=== PATIENT | female | born 1950 | race Caucasian/White ===

== ENCOUNTER → 2019-06-29 | Outpatient (CLI) | payer MEDICARE ==
--- NOTE | 2019-06-29 09:17 | CT ---
EXAMINATION TYPE: CT chest w con DATE OF EXAM: 06/29/2019 COMPARISON: 06/04/2019 HISTORY: Enlarged lymph nodes CT DLP: 656.9 mGycm, Automated exposure control for dose reduction was used. CONTRAST: Performed injected with 80 mL of Isovue 300. TECHNIQUE: Axial images were obtained at 5 mm thick sections. Reconstructed images are reviewed on Walk Score computer in the coronal plane. FINDINGS: Portion of the thyroid visualized is normal. There is a peripheral 1.1 cm density along the major fissure on the right. Series 4 image 36. Some no dule or mass is at the left diaphragm measuring 1.2 x 2.3 cm. Series 4 image 44. Small amount of pneu monitis changes adjacent to these 2 lesions. The left basilar lesion appears better defined on the cu rrent examination and is similar to slightly smaller than the comparison. The nodule on the right lik ewise is smaller than the comparison. Nodule at the left lung base had increased radiotracer accumulation on recent PET/CT dated 05/26/2019. Decrease in size could be related to a resolving adjacent pneumonia or atelectasis right primary or m etastatic disease at this level is not excluded on the basis of this examination. No enlarged mediastinal or hilar adenopathy is evident. Scattered shotty lymphadenopathy in the med iastinum. The ascending aorta diameter at the level of the main pulmonary artery is 3.2 cm. The main pulmonary artery diameter at the bifurcation is 2.[address] sections are obtained through the upper abdomen. Abdomen is essentially unremarkable. IMPRESSIONS: 1. There is again identified a lung mass above the left diaphragm and a 1.1 cm nodule in the peripher y of the right lung. Clinical management is recommended. Left lung nodule was suspicious based on a r ecent PET/CT.
== END | disposition home or self-care (01) ==
LOC: RADCTMAIN 06:35
PROVIDERS: ATTEND Thoracic Surgery (Cardiothoracic Vascular Surgery)
DX: R91.8 Other nonspecific abnormal finding of lung field (principal)
CPT/HCPCS: 82565; 84520; 71260; Q9967

== ENCOUNTER → 2019-07-30 | Outpatient (CLI) | payer MEDICARE ==
[2019-07-30 13:19] LABS: HCT 44.4 % (34.0-46.0); HGB 14.2 gm/dL (11.4-16.0); MCH 27.8 pg (25.0-35.0); Mean Platelet Volume 8.5; Platelet Count 192 k/uL (150-450); RDW 13.1 % (11.5-15.5); WBC 5.2 k/uL (3.8-10.6)
[2019-07-30 13:22] LABS: Appearance,Urine Clear (Clear); Bilirubin,Urine Negative (Negative); Blood,Urine Small (Negative); Color,Urine Yellow; Glucose,Urine (UA) Negative (Negative); Hyaline Casts,Urine 1 /lpf (0-2); Ketones,Urine Negative (Negative); Leukocyte Esterase,Urine Negative (Negative); Mucus,Urine Occasional /hpf; Nitrite,Urine Negative (Negative); PH, Urine 5.5 (5.0-8.0); Protein,Urine Negative (Negative); RBC,Urine 3 /hpf (0-5); Specific Gravity,Urine 1.026 (1.001-1.035); Squamous Epithelial Cell,Urine <1 /hpf (0-4); Urobilinogen,Urine <2.0 mg/dL (<2.0); WBC,Urine 1 /hpf (0-5)
[2019-07-30 13:26] LABS: African American GFR (CKD) >90 (>60 ml/min/1.73 sqM); Anion Gap 7 mmol/L; Blood Urea Nitrogen 27 mg/dL (7-17); Carbon Dioxide 25 mmol/L (22-30); Chloride 108 mmol/L (98-107); Non-African American GFR(CKD) 89 (>60 ml/min/1.73 sqM); Potassium 4.1 mmol/L (3.5-5.1); Sodium 140 mmol/L (137-145)
[2019-07-30 13:27] LABS: INR 0.9 (<1.2)
[2019-07-30 13:32] LABS: Partial Thromboplastin Time 20.3 sec (22.0-30.0)
== END | disposition home or self-care (01) ==
LOC: LABPAT 12:52
PROVIDERS: ATTEND Thoracic Surgery (Cardiothoracic Vascular Surgery)
DX: Z01.812 Encounter for preprocedural laboratory examination (principal); R91.8 Other nonspecific abnormal finding of lung field; Z51.81 Encounter for therapeutic drug level monitoring
CPT/HCPCS: 80051; 81001; 82565; 84520; 85027; 85610; 85730; 87086

== ENCOUNTER 2019-08-06 09:27 | Inpatient (IN) | payer MEDICARE ==
[2019-07-31 15:40] VITALS: BMI 43.9
[~2019-08-06 09:27] MED LIST: DEXAMETHASONE SOD PHOSPHATE 10 MG/ML 1 ML VIAL IV ONE; ONDANSETRON 4 MG/2 ML VIAL IVP ONE
[2019-08-06] MEDS: LACTATED RINGERS 1,000 ML IV SCH ×2 (10:38→11:29)
[2019-08-06] MEDS ORDERED: LIDOCAINE 1% 20 ML VIAL (10MG/ML) FOR IV START INTRADERMA ONE (10:39)
[2019-08-06] MEDS ORDERED: fentaNYL (PF) 50 MCG/ML 2 ML AMP IVP ONE ×2 (10:58→11:01)
[2019-08-06] MEDS: MIDAZOLAM 2 MG/2 ML VIAL IV PRN ×2 (10:58→11:00)
[2019-08-06] MEDS ORDERED: HYDROmorphone (PF) 1 MG/ML ONE (11:20)
[2019-08-06] MEDS ORDERED: ONDANSETRON 4 MG/2 ML VIAL ONE (11:20)
[2019-08-06] MEDS ORDERED: GLYCOPYRROLATE 0.2 MG/ML 2 ML VIAL ONE (11:20)
[2019-08-06] MEDS ORDERED: PROPOFOL 10 MG/ML 20 ML VIAL IV ONE (11:20)
[2019-08-06] MEDS ORDERED: SUCCINYLCHOLINE CHLORIDE 100 MG/5 ML SYR IV ONE (11:20)
[2019-08-06] MEDS ORDERED: LIDOCAINE 1% INJ 10MG/ML (20 ML MDV) ONE (11:20)
[2019-08-06] MEDS ORDERED: ROCURONIUM BROMIDE 10 MG/ML 10 ML VIAL IV ONE (11:20)
[2019-08-06] MEDS ORDERED: fentaNYL (PF) 50 MCG/ML 2 ML AMP ONE (11:20)
[2019-08-06] MEDS ORDERED: NEOSTIGMINE 1 MG/ML 10 ML VIAL ONE (11:20)
[2019-08-06] MEDS ORDERED: BUPIVACAINE (PF) 0.5% 30 ML VIAL SQ ONE ×2 (12:32)
[2019-08-06] MEDS ORDERED: LACTATED RINGERS 1,000 ML IV ONE (12:37)
[2019-08-06] MEDS: HYDROmorphone 0.5 MG/0.5 ML SYRINGE IVP PRN ×3 (13:14→14:52)
--- NOTE | 2019-08-06 13:30 | XR ---
EXAMINATION TYPE: XR chest 1V portable DATE OF EXAM: 08/06/2019 Comparison: CT chest 06/29/2019 Clinical History: 68-year-old female status post VATS Findings: Heart upper limits of normal in size, likely accentuated due to portable AP technique. Suspect magnif ication causing prominence to the interstitium. Left-sided chest tube in place. No appreciable pneumo thorax. Left basilar opacity and trace right effusion suggested. Some chronic scarring peripheral rig ht midlung. Impression: 1. Left-sided chest tube. No appreciable pneumothorax. 2. Left basilar opacity could represent postoperative atelectasis or small effusion. A trace effusion may be present on the right.
--- NOTE | 2019-08-06 15:03 | P.OP ---
Date of Procedure: 08/06/19 Preoperative Diagnosis: left lower lobe mass Postoperative Diagnosis: same Procedure(s) Performed: Left thoracoscopic lower lobe wedge resection Anesthesia: NADIA Surgeon: Jamshid Pleitez Sap Solution Manager Consultant #1: Carmine Carter Estimated Blood Loss (ml): 10 IV fluids (ml): 500 Pathology: other (Wedge resection left lower lobe for permanent section) Condition: stable Disposition: PACU Indications for Procedure: 68-year-old female with mass and left lower lobe over a several month time. This had diminished in size and the patient was reassured that we could continue to watch it however she called and said that she was very nervous and wanted it resected. Operative Findings: No obvious mass could be identified in the left lower lobe. A wide wedge resection of the area in question was performed. Description of Procedure: Patient was brought to the operating room, placed supine the operating table, anesthetized and intubated. Patient was turned in the right lateral decubitus position. Tube was positioned with fiberoptic bronchoscopy and secured. Left chest was sterilely prepped and draped. 3 one-inch incisions were made in the lower portion of the left chest and video thoracoscope was introduced through one. Through the other instrumentation was placed in the chest was carefully explored. Mass could not be identified on the external surface of the lower lobe of the lung. Ultimately it was decided to perform a wide wedge resection of the area in question using multiple firings of Endo BRAULIO medium thick stapler. Specimen was removed from the chest using an Endo Catch bag and sent for permanent section. 28-Slovak chest tube was placed through separate stab incision and positioned posterior apically and secured with 0 Ethibond suture. Lung was reinflated. Incisions were closed with layers of Vicryl suture. Chest tube was secured with an 0 Ethibond suture. Dry sterile dressings were applied the patient was extubated and transferred to recovery in stable condition
[2019-08-06] MEDS ORDERED: IPRATROPIUM-ALBUTEROL 3 ML NEB IH PRN (15:33)
[2019-08-06] MEDS ORDERED: ONDANSETRON 4 MG/2 ML VIAL IVP PRN (15:33)
[2019-08-06] MEDS ORDERED: DEXTROSE 5%-0.45% NACL 1,000 ML IV SCH (15:33)
[2019-08-06] MEDS ORDERED: traMADol 50 MG TAB PO PRN (15:33)
[2019-08-06] MEDS ORDERED: ACETAMINOPHEN TAB 500 MG TAB PO PRN (15:33)
[2019-08-06] MEDS: HEPARIN SODIUM,PORCINE 5,000 UNIT/ML 1 ML VIAL SQ SCH (16:11)
--- NOTE | 2019-08-06 16:25 | P.CNPUL ---
History of Present Illness Consult date: 08/06/19 Reason for consult: dyspnea, cough, COPD, lung mass, obstructive sleep apnea Chief complaint: Left lower lobe mass History of present illness: This is a 68-year-old female who has a left-sided lung mass and cyst on revie wing the mass patient underwent wide vaginal resection of mass tolerated very well successfully weaned and extubated in recovery area, patient was examined her cough. Denies any chest pain is still under affect of anesthetic medication most related as been not been obtained Review of Systems All systems: negative Past Medical History Past Medical History: Asthma, Hypertension, Pneumonia Additional Past Medical History / Comment(s): states has pulmonary nodule History of Any Multi-Drug Resistant Organisms: None Reported Past Surgical History: Hysterectomy, Joint Replacement, Orthopedic Surgery Additional Past Surgical History / Comment(s): julien knee replacement, bunionectomy, bronchoscopy with bx, D&C Past Anesthesia/Blood Transfusion Reactions: No Reported Reaction Smoking Status: Never smoker - Past Family History Sister(s) Family Medical History: Cancer Additional Family Medical History / Comment(s): breast Medications and Allergies Home Medications Medication Instructions Recorded Confirmed Type Albuterol Inhaler [Ventolin Hfa 1 - 2 puff INHALATION RT-Q6H PRN 07/31/19 08/06/19 History Inhaler] Aspirin [Adult Low Dose Aspirin EC] 81 mg PO DAILY 07/31/19 08/06/19 History Flaxseed Oil 1 tab PO DAILY 07/31/19 08/06/19 History Ibuprofen [Motrin] 800 mg PO Q8H PRN 07/31/19 08/06/19 History Metoprolol Tartrate [Lopressor] 25 mg PO QAM 07/31/19 08/06/19 History Multivitamins, Thera [Multivitamin 1 tab PO DAILY 07/31/19 08/06/19 History (formulary)] [place]-3 Fatty Acids/Fish Oil [Fish 1 each PO DAILY 07/31/19 08/06/19 History Oil 1,000 mg Softgel] Allergies Allergy/AdvReac Type Severity Reaction Status Date / Time No Known Allergies Allergy Verified 08/06/19 09:59 Physical Exam Vitals: Vital Signs Temp Pulse Pulse Resp BP BP BP 08/06/19 15:50 97.5 F L 55 L 16 129/66 08/06/19 14:55 57 L 16 159/77 08/06/19 14:40 58 L 16 161/78 08/06/19 14:25 49 L 16 163/81 08/06/19 14:10 47 L 16 166/81 08/06/19 13:53 45 L 16 155/73 08/06/19 13:38 53 L 16 171/81 08/06/19 13:24 50 L 16 183/86 08/06/19 13:08 59 L 18 171/77 08/06/19 12:53 98.1 F 76 20 190/87 08/06/19 10:14 98.3 F 66 20 120/81 135/91 Pulse Ox 08/06/19 15:50 93 L 08/06/19 14:55 93 L 08/06/19 14:40 94 L 08/06/19 14:25 95 08/06/19 14:10 94 L 08/06/19 13:53 95 08/06/19 13:38 96 08/06/19 13:24 99 08/06/19 13:08 96 08/06/19 12:53 92 L 08/06/19 10:14 95 Intake and Output 08/06/19 08/06/19 08/06/19 06:59 14:59 22:59 Intake Total 1800 Output Total 10 Balance 1790 Intake: IV 1800 Output: Estimated Blood Loss 10 Other: Weight 118 kg 118 kg - Constitutional General appearance: average body habitus, disheveled, morbidly obese - EENT Eyes: EOMI, PERRLA Ears: bilateral: normal - Neck Neck: normal ROM Carotids: bilateral: upstroke normal Thyroid: bilateral: normal size - Respiratory Respiratory: bilateral: CTA - Cardiovascular Rhythm: regular Heart sounds: normal: S1, S2 - Neurologic Neurologic: CNII-XII intact - Musculoskeletal Musculoskeletal: gait normal, generalized weakness, strength equal bilaterally - Psychiatric Psychiatric: A&O x's 3, appropriate affect, intact judgment & insight Results - Diagnostic Findings Chest x-ray: report reviewed, image reviewed (Left-sided chest tube and no pneumothorax is seen left basilar opacity versus small effusion) Assessment and Plan Assessment: Left-sided lung mass status post resection Small residual left-sided pleural effusion Basal atelectasis Hypertension hypertensive cardiovascular disease Bronchial asthma mild intermittent Morbid obesity Degenerative joint disease osteoarthritis Plan: Continue deep breathing exercises incentive spirometry Resume home medications DVT and peptic ulcer disease prophylaxis Supplemental oxygen as needed Further recommendations pending plan of care as per clinical response of patient Follow-up on path report of left-sided lung mass Time with Patient: Greater than 30
[2019-08-06 16:43] VITALS: RESP 18
[2019-08-06] MEDS: KETOROLAC 30 MG/ML 1 ML VIAL IVP SCH (17:12)
[2019-08-06] MEDS: IPRATROPIUM-ALBUTEROL 3 ML NEB IH SCH ×2 (17:53→18:47)
[2019-08-07] MEDS: HEPARIN SODIUM,PORCINE 5,000 UNIT/ML 1 ML VIAL SQ SCH ×2 (01:52→08:46)
[2019-08-07] MEDS: KETOROLAC 30 MG/ML 1 ML VIAL IVP SCH ×3 (01:52→12:44)
[2019-08-07 06:27] LABS: Basophils % (A) 0 %; Eosinophils # (A) 0.1 k/uL (0-0.7); Eosinophils % (A) 1 %; HCT 39.2 % (34.0-46.0); Lymphocytes # (A) 0.9 k/uL (1.0-4.8); Lymphocytes % (A) 14 %; MCH 28.8 pg (25.0-35.0); MCHC 33.2 g/dL (31.0-37.0); MCV 86.7 fL (80.0-100.0); Mean Platelet Volume 8.5; Monocytes # (A) 0.5 k/uL (0-1.0); Monocytes % (A) 8 %; Neutrophils # (A) 5.2 k/uL (1.3-7.7); Neutrophils % (A) 76 %; Platelet Count 208 k/uL (150-450); RBC 4.52 m/uL (3.80-5.40); RDW 12.6 % (11.5-15.5); WBC 6.9 k/uL (3.8-10.6)
[2019-08-07 06:41] LABS: African American GFR (CKD) >90 (>60 ml/min/1.73 sqM); Anion Gap 5 mmol/L; Blood Urea Nitrogen 26 mg/dL (7-17); Calcium 8.9 mg/dL (8.4-10.2); Carbon Dioxide 27 mmol/L (22-30); Chloride 105 mmol/L (98-107); Glucose 106 mg/dL (74-99); Non-African American GFR(CKD) 81 (>60 ml/min/1.73 sqM); Potassium 4.7 mmol/L (3.5-5.1); Sodium 137 mmol/L (137-145)
[2019-08-07] MEDS ORDERED: PANTOPRAZOLE 40 MG TABLET PO SCH (07:30)
[2019-08-07] MEDS: IPRATROPIUM-ALBUTEROL 3 ML NEB IH SCH ×3 (07:43→16:42)
[2019-08-07] MEDS ORDERED: MULTIVITAMINS, THERA 1 EACH TAB PO SCH (09:00)
[2019-08-07] MEDS ORDERED: METOPROLOL TARTRATE 25 MG TAB PO SCH (09:00)
[2019-08-07] MEDS ORDERED: ASPIRIN 81 MG PO SCH (09:00)
--- NOTE | 2019-08-07 09:05 | XR ---
EXAMINATION TYPE: XR chest 1V DATE OF EXAM: 08/07/2019 COMPARISON: 08/06/2019 HISTORY: Post VATS TECHNIQUE: Single frontal view of the chest is obtained. FINDINGS: Heart upper limits of normal in size, likely accentuated due to portable AP technique. Mirella pect magnification causing prominence to the interstitium. Left- sided chest tube in place. No apprec iable pneumothorax. Bilateral basilar consolidation small effusion stable. Some chronic scarring uzma pheral right midlung. IMPRESSION: 1. No definite left-sided pneumothorax. 2. Bilateral basilar consolidation and effusion are stable
--- NOTE | 2019-08-07 12:05 | XR ---
EXAMINATION TYPE: XR chest 2V DATE OF EXAM: 08/07/2019 COMPARISON: 08/07/2019 TECHNIQUE: PA and lateral views submitted. HISTORY: Chest tube removal FINDINGS: Chest tube is been removed with tiny less than 5% left apical pneumothorax. Bilateral consolidation s mall effusion stable. No overt failure. Heart enlarged but stable. IMPRESSION: 1. Chest tube removal with a tiny less than 5% left apical pneumothorax. 2. Stable bilateral consolidation and small effusion.
[2019-08-07 12:26] VITALS: BP 140/63; PULSE 57; TEMP 97.9
--- NOTE | 2019-08-07 13:35 | P.DS ---
Providers Date of admission: 08/06/19 09:27 Expected date of discharge: 08/07/19 Attending physician: Jamshid Pleitez Consults: 08/06/19 15:33 Consult Physician Routine Consulting Provider: Devin Haq Consult Reason/Comments: post wedge resection Do you want consulting provider notified?: Yes Primary care physician: Link [facility] Course: FINAL DIAGNOSIS: 1. Left lower lobe mass 2. History of hypertension 3. Bronchial asthma, mild intermittent 4. Morbid obesity 5. Degenerative joint disease osteoarthritis PRINCIPAL PROCEDURE: 1. Left thoracoscopic lower lobe wedge resection HISTORY OF PRESENT ILLNESS: This is a 68-year-old female patient who is followed by Dr. Link Schmitt on an outpatient basis. She also follows with Dr. TRISHA Haq from pulmonary medicine. She has a past medical history significant for a left lower lobe mass, hypertension, bronchial asthma, morbid obesity and osteoarthritis. She has a history of progressive shortness of breath and dyspnea dating back from March 2019. She reports that she has had several courses of antibiotic and steroids without any relief. Subsequently a computed tomography scan of her chest was completed which demonstrated bilateral pulmonary nodules. Due to the findings of the bilateral pulmonary nodules she underwent a PET scan which showed uptake in the left lower lobe nodule with a SUV uptake of 5.73, a small uptake in the left hilum with an SUV of 4.35 and the right mid lung nodule had an SUV of 2.18. It also showed a small right-sided pleural effusion. For further evaluation the patient underwent a bronchoscopy with an attempt of transbronchial biopsy of the left lung nodule. The biopsy was nondiagnostic although cultures taken during the bronchoscopy grew positive for Escherichia coli which was treated with antibiotics and steroids. Due to the findings on the computed tomography scan of her chest, PET scan results and the biopsy results being nondiagnostic on the bronchoscopy she was referred to Dr. Jamshid Pleitez for further evaluation and treatment recommendations. Treatment options were discussed with the patient by Dr. Jamshid Pleitez with risks and benefits discussed and she wished to proceed with an elective left thoracoscopic procedure with lower lobe wedge resection. HOSPITAL COURSE: The patient was admitted to the hospital and after obtaining consent underwent an elective left thoracoscopic lower lobe wedge resection performed by Dr. Jamshid Pleitez. Upon completion of the surgery the patient was recovered and transferred to the cardiac stepdown unit for further monitoring and rehabilitation. Her chest tube was discontinued this morning without incident and a follow-up chest x-ray was completed which showed a less than 5% stable left apical pneumothorax with stable bilateral consolidation and small effusion. Her oxygen has been titrated down, her pain is well controlled and she is ready to be discharged home on postoperative day #1. She has received written and verbal instructions regarding her medications, activity restrictions, and signs and symptoms requiring physician notification and her follow-up appointments. Her surgical pathology results remain pending and will be discussed with her upon follow-up outpatient visit with Dr. Jamshid Pleitez. COMPLICATIONS: There were no postoperative complications. CONSULTATIONS: 1. Dr. Mcclain for pulmonary management. DISCHARGE INSTRUCTIONS: 1. No driving for 2 weeks or until physician gives their okay. 2. No lifting, pushing or pulling more than 10 pounds for 2 weeks. The physician will advise of any restriction changes. 3. Continue pain control per as needed orders. Alternate acetaminophen and ibuprofen for pain. 4. Continue with incentive spirometry and splinting until otherwise directed by the physician. 5. Leave chest tube dressing for 48 hours. After the 48 hours remove all dressings and shower daily. 6. Routine incision care. No powders, lotions, or ointments on incision. 7. Please call surgeon/JUNIOR ART DIRECTOR for temperature greater than 101F or drainage from the incision.. Plan - Discharge Summary Discharge Rx Participant: Yes New Discharge Prescriptions: New Pantoprazole [Protonix] 40 mg PO -BRKFST #30 tablet. Acetaminophen Tab [Tylenol] 1,000 mg PO Q6HR PRN tab PRN Reason: Fever And/ Or Pain Continue Multivitamins, Thera [Multivitamin (formulary)] 1 tab PO DAILY Albuterol Inhaler [Ventolin Hfa Inhaler] 1 - 2 puff INHALATION RT-Q6H PRN PRN Reason: Shortness Of Breath [place]-3 Fatty Acids/Fish Oil [Fish Oil 1,000 mg Softgel] 1 each PO DAILY Metoprolol Tartrate [Lopressor] 25 mg PO QAM Ibuprofen [Motrin] 800 mg PO Q8H PRN PRN Reason: Pain Flaxseed Oil 1 tab PO DAILY Aspirin [Adult Low Dose Aspirin EC] 81 mg PO DAILY Discharge Medication List Albuterol Inhaler [Ventolin Hfa Inhaler] 1 - 2 puff INHALATION RT-Q6H PRN 07/31/19 [History] Aspirin [Adult Low Dose Aspirin EC] 81 mg PO DAILY 07/31/19 [History] Flaxseed Oil 1 tab PO DAILY 07/31/19 [History] Ibuprofen [Motrin] 800 mg PO Q8H PRN 07/31/19 [History] Metoprolol Tartrate [Lopressor] 25 mg PO QAM 07/31/19 [History] Multivitamins, Thera [Multivitamin (formulary)] 1 tab PO DAILY 07/31/19 [History] [place]-3 Fatty Acids/Fish Oil [Fish Oil 1,000 mg Softgel] 1 each PO DAILY 07/31/19 [History] Acetaminophen Tab [Tylenol] 1,000 mg PO Q6HR PRN tab 08/07/19 [Rx] Pantoprazole [Protonix] 40 mg PO AC-BRKFST #30 tablet. 08/07/19 [Rx] Follow up Appointment(s)/Referral(s): Link Dsouza MD [Primary Care Provider] - 1 Week Jamshid Pleitez MD [STAFF PHYSICIAN] - 08/13/19 1:00 pm Devin Haq MD [STAFF PHYSICIAN] - 1 Week Activity/Diet/Wound Care/Special Instructions: DISCHARGE INSTRUCTIONS: 1. No driving for 2 weeks or until physician gives their okay. 2. No lifting, pushing or pulling more than 10 pounds for 2 weeks. The physician will advise of any restriction changes. 3. Continue pain control per as needed orders. Alternate acetaminophen and ibuprofen for pain. 4. Continue with incentive spirometry and splinting until otherwise directed by the physician. 5. Leave chest tube dressing for 48 hours. After the 48 hours remove all dressings and shower daily. 6. Routine incision care. No powders, lotions, or ointments on incision. 7. Please call surgeon/JUNIOR ART DIRECTOR for temperature greater than 101F or drainage from the incision. Discharge Disposition: HOME SELF-CARE
--- NOTE | 2019-08-12 16:40 | P.PN ---
Subjective Progress Note Date: 08/07/19 Principal diagnosis: Left-sided lung mass status post resection Small residual left-sided pleural effusion Basal atelectasis Hypertension hypertensive cardiovascular disease Bronchial asthma mild intermittent Morbid obesity Degenerative joint disease osteoarthritis 08/07/2019, patient seen and evaluated examined in follow-up sitting upright in the bed breathing comfortably denies any chest pain soreness in the chest some present, patient likely will be discharged later on today, patient is doing fairly well after left thorascopic lower lobe wedge resection of the lung mass This is a 68-year-old female who has a left-sided lung mass and cyst on reviewing the mass patient underwent wide vaginal resection of mass tolerated very well successfully weaned and extubated in recovery area, patient was examined her cough. Denies any chest pain is still under affect of anesthetic medication most related as been not been obtained Objective - Vital Signs Vital signs: Vital Signs Temp 97.9 F 08/07/19 11:40 Pulse 57 L 08/07/19 11:40 Resp 18 08/07/19 11:40 BP 140/63 08/07/19 11:40 Pulse Ox 93 L 08/07/19 11:40 Intake & Output 08/06/19 08/07/19 08/07/19 18:59 06:59 18:59 Intake Total 192 150 600 Output Total 10 25 10 Balance 1909 125 590 Weight 118 kg 118.8 kg Intake: IV 1800 Oral 120 150 600 Output: Chest Tube Drainage 25 Chest Tube Left Mid- 25 Axillary Chest Drainage 10 Left Chest 10 Estimated Blood Loss 10 Other: # Voids 1 1 - Exam - Constitutional General appearance: average body habitus, disheveled, morbidly obese - EENT Eyes: EOMI, PERRLA Ears: bilateral: normal - Neck Neck: normal ROM Carotids: bilateral: upstroke normal Thyroid: bilateral: normal size - Respiratory Respiratory: bilateral: CTA - Cardiovascular Rhythm: regular Heart sounds: normal: S1, S2 - Neurologic Neurologic: CNII-XII intact - Musculoskeletal Musculoskeletal: gait normal, generalized weakness, strength equal bilaterally - Psychiatric Psychiatric: A&O x's 3, appropriate affect, intact judgment & insight - Labs CBC & Chem 7: 08/07/19 05:54 08/07/19 05:54 Labs: Abnormal Lab Results - Last 24 Hours (Table) 08/07/19 08/07/19 Range/Units 05:54 05:54 Lymphocytes # 0.9 L (1.0-4.8) k/uL BUN 26 H (7-17) mg/dL Glucose 106 H (74-99) mg/dL Assessment and Plan Assessment: Left-sided lung mass status post resection Small residual left-sided pleural effusion Basal atelectasis Hypertension hypertensive cardiovascular disease Bronchial asthma mild intermittent Morbid obesity Degenerative joint disease osteoarthritis Plan: Continue deep breathing exercises incentive spirometry Continue home medications DVT and peptic ulcer disease prophylaxis Supplemental oxygen as needed Further recommendations pending plan of care as per clinical response of patient Follow-up on path report of left-sided lung mass Agree with discharge planning Time with Patient: Greater than 30
--- NOTE | 2019-08-19 09:12 | CDI ---
Documentation Clarification Form Date: 08/19/19 From: Chrissy Mckeon Phone: If you have a question about this query, please contact Meron Echavarria, Percussion Teacher at [phone] between 8am and 5pm. Admit Date: 08/06/19 Discharge Date: 08/07/19 Patient Name: Karmen Cruz Visit Number: [id number] ATTENTION: The Clinical Documentation Specialists (CDI) and [facility] Coding Staff appreciate your assistance in clarifying documentation. Please respond to the clarification below the line at the bottom and electronically sign. The CDI & [facility] Coding staff will review the response and follow-up if needed. Please note: Queries are made part of the Legal Health Record. If you have any questions, please contact the author of this message via ITS. Dear Dr. Jamshid Pleitez, The final diagnosis of the pathology report states: Acute and organizing granulomatous pneumonia. 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 Documentation states: Left sided lung mass. Patient history/risk factors: Morbid obesity w BMI 43.6, COPD, LUNA, mild intermittent asthma, OA Clinical Indicators: Patient is a morbidly obese female with a history (five months) of increasing shortness of breath and dyspnea on exertion. Over the past five months, she has had several courses of antibiotics and steroids without significant relief. Treatment: Left thoracoscopic lower lobe wedge resection, IV Cefazolin, IV Decadron, nebulizer, In your professional opinion, do you agree with the pathology report specifying left lower lobe mass as Acute and organizing granulomatous pneumonia? No Other (please specify) Unable to determine MTDD
--- NOTE | 2019-08-21 13:25 | CDI ---
Documentation Clarification Form Date: 08/19/19 From: Chrissy Mckeon Phone: If you have a question about this query, please contact Meron Echavarria, Java Consultant at [phone] between 8am and 5pm. Admit Date: 08/06/19 Discharge Date: 08/07/19 Patient Name: Karmen Cruz Visit Number: [id number] ATTENTION: The Clinical Documentation Specialists (CDI) and [facility] Coding Staff appreciate your assistance in clarifying documentation. Please respond to the clarification below the line at the bottom and electronically sign. The CDI & [facility] Coding staff will review the response and follow-up if needed. Please note: Queries are made part of the Legal Health Record. If you have any questions, please contact the author of this message via ITS. Dear Dr. Jamshid Pleitez, The final diagnosis of the pathology report states: Acute and organizing granulomatous pneumonia. 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 Documentation states: Left sided lung mass. Patient history/risk factors: Morbid obesity w BMI 43.6, COPD, LUNA, mild intermittent asthma, OA Clinical Indicators: Patient is a morbidly obese female with a history (five months) of increasing shortness of breath and dyspnea on exertion. Over the past five months, she has had several courses of antibiotics and steroids without significant relief. Treatment: Left thoracoscopic lower lobe wedge resection, IV Cefazolin, IV Decadron, nebulizer, In your professional opinion, do you agree with the pathology report specifying left lower lobe mass as Acute and organizing granulomatous pneumonia? Yes No Other (please specify) Unable to determine yes MTDD
== END 2019-08-07 16:35 | disposition home or self-care (01) | DRG 167 ==
LOC: 2ORMAIN 09:27 → 3SCARD 12:45
PROVIDERS: ADMIT Thoracic Surgery (Cardiothoracic Vascular Surgery); ATTEND Thoracic Surgery (Cardiothoracic Vascular Surgery)
PROC: 0BBJ4ZX Excision of Left Lower Lung Lobe, Percutaneous Endoscopic Approach, Diagnostic (ICD-10-PCS; principal; 2019-08-06 10:55)
DX: J84.89 Other specified interstitial pulmonary diseases (principal); Z68.41 Body mass index [BMI] 40.0-44.9, adult; J90 Pleural effusion, not elsewhere classified; J98.11 Atelectasis; E66.01 Morbid (severe) obesity due to excess calories; I11.9 Hypertensive heart disease without heart failure; J44.9 Chronic obstructive pulmonary disease, unspecified; G47.33 Obstructive sleep apnea (adult) (pediatric); J45.20 Mild intermittent asthma, uncomplicated; M19.90 Unspecified osteoarthritis, unspecified site; Z79.82 Long term (current) use of aspirin; Z79.899 Other long term (current) drug therapy; Z90.710 Acquired absence of both cervix and uterus; Z96.653 Presence of artificial knee joint, bilateral; Z87.01 Personal history of pneumonia (recurrent); Z98.890 Other specified postprocedural states; Z80.3 Family history of malignant neoplasm of breast
CPT/HCPCS: 71045; 71046; 80048; 85025; 88307; 88312; 93005; 94640; 94760

== ENCOUNTER 2019-12-13 14:59 | Inpatient (IN) | payer MEDICARE ==
[2019-12-13] MEDS ORDERED: SODIUM CHLORIDE 0.9% 1,000 ML IV STA (15:32)
--- NOTE | 2019-12-13 15:38 | ED ---
General Adult HPI - General Chief complaint: Arrhythmia/Palpitations Stated complaint: Dizzy Time Seen by Provider: 12/13/19 15:04 Source: patient, EMS, RN notes reviewed Mode of arrival: EMS Limitations: no limitations - History of Present Illness Initial comments: Patient is a pleasant 69-year-old female presenting to the emergency Department with complaints of dizziness and palpitations. Symptoms have been waxing and waning for several hours now. Patient has had some dizziness previously however never palpitations. Patient feels sometimes like her heart is racing. No chest pain. No dyspnea. Patient states symptoms are mild at this time. Patient does get some associated nausea. No history of previous arrhythmia. - Related Data Home Medications Medication Instructions Recorded Confirmed Albuterol Inhaler (Mhu) [Ventolin 1 - 2 puff INHALATION RT-Q6H PRN 07/31/19 08/06/19 Hfa Inhaler (Mhu)] Aspirin [Adult Low Dose Aspirin EC] 81 mg PO DAILY 07/31/19 08/06/19 Flaxseed Oil 1 tab PO DAILY 07/31/19 08/06/19 Ibuprofen [Motrin] 800 mg PO Q8H PRN 07/31/19 08/06/19 Metoprolol Tartrate [Lopressor] 25 mg PO QAM 07/31/19 08/06/19 Multivitamins, Thera [Multivitamin 1 tab PO DAILY 07/31/19 08/06/19 (formulary)] [place]-3 Fatty Acids/Fish Oil [Fish 1 each PO DAILY 07/31/19 08/06/19 Oil 1,000 mg Softgel] Previous Rx's Medication Instructions Recorded Acetaminophen Tab [Tylenol] 1,000 mg PO Q6HR PRN tab 08/07/19 Pantoprazole [Protonix] 40 mg PO [id number] #30 tablet. 08/07/19 Allergies Allergy/AdvReac Type Severity Reaction Status Date / Time No Known Allergies Allergy Verified 12/13/19 15:17 Review of Systems ROS Statement: Those systems with pertinent positive or pertinent negative responses have been documented in the HPI. ROS Other: All systems not noted in ROS Statement are negative. Constitutional: Denies: fever Eyes: Denies: eye pain ENT: Denies: ear pain Respiratory: Denies: cough, dyspnea Cardiovascular: Reports: palpitations. Denies: chest pain Endocrine: Denies: fatigue Gastrointestinal: Reports: nausea. Denies: abdominal pain Genitourinary: Denies: dysuria Musculoskeletal: Denies: back pain Skin: Denies: rash Neurological: Denies: headache, weakness, confusion Past Medical History Past Medical History: Asthma, Hypertension, Pneumonia Additional Past Medical History / Comment(s): states has pulmonary nodule History of Any Multi-Drug Resistant Organisms: None Reported Past Surgical History: Hysterectomy, Joint Replacement, Orthopedic Surgery Additional Past Surgical History / Comment(s): julien knee replacement, bunionectomy, bronchoscopy with bx, D&C Past Anesthesia/Blood Transfusion Reactions: No Reported Reaction Past Psychological History: No Psychological Hx Reported Smoking Status: Never smoker Past Alcohol Use History: None Reported Past Drug Use History: None Reported - Past Family History Sister(s) Family Medical History: Cancer Additional Family Medical History / Comment(s): breast General Exam Limitations: no limitations General appearance: alert, in no apparent distress Head exam: Present: normocephalic Eye exam: Present: normal appearance Neck exam: Present: normal inspection Respiratory exam: Present: normal lung sounds bilaterally Cardiovascular Exam: Present: tachycardia Expanded Peripheral pulses: 2+: Radial (R), Radial (L), Dorsalis Pedis (R), Dorsalis Pedis (L) GI/Abdominal exam: Present: soft. Absent: tenderness, guarding Extremities exam: Present: normal inspection. Absent: pedal edema, calf tenderness Neurological exam: Present: alert Psychiatric exam: Present: normal affect, normal mood Skin exam: Present: normal color Course Vital Signs 12/13/19 12/13/19 12/13/19 15:18 15:40 16:00 Temperature 98.2 F Pulse Rate 156 H 156 H 156 H Respiratory 18 16 16 Rate Blood Pressure 111/82 105/90 102/85 O2 Sat by Pulse 95 96 95 Oximetry - Reevaluation(s) Reevaluation #1: 12/13/19 15:37 personnel monitor with neuro complex tachycardia with intermittent irregularity here patient was placed on cardiac cath technologist for monitoring for arrhythmia and tachycardia. EKG #2 shows narrow complex tachycardia with rate of 155. QRS 80. QT 300. QTc 482. Normal axis. Normal QRS. Nonspecific ST-T. EKG #3 shows sinus tachycardia 101. First-degree AV block AZ of 216. QRS 88. QT 334. QTC 433. Normal axis. Normal QRS. No acute ST change. PVC is present. 12/13/19 16:08 EKG #4 shows A. fib with rate of 122. QRS 82. QT 306. QTc 436. Normal axis. Normal QRS. No acute ST change. 12/13/19 16:47 Patient reevaluated and is feeling somewhat better. Patient updated on results and plan. Admitting physician and cardiology has been paged. 12/13/19 16:53 Case was discussed in detail with Dr. Jang, who will admit. Case also discussed in detail with Dr. Haq with cardiology will consult. He agrees with blood right replacement. He recommends only subcu heparin at this time. Also recommends IV fluids. EKG Findings - EKG Comments: EKG Findings:: Neuro complex tachycardia with irregularity. P waves are not always present. Rate 111. AZ 186. QRS 80. QT 3:30. QTC 459. Normal axis. Normal QRS. No acute ST change. Medical Decision Making - Lab Data Result diagrams: 12/13/19 15:36 12/13/19 15:36 Lab Results 12/13/19 12/13/19 12/13/19 Range/Units 15:36 15:36 15:36 WBC 5.8 (3.8-10.6) k/uL RBC 3.92 (3.80-5.40) m/uL Hgb 10.9 L (11.4-16.0) gm/dL Hct 34.3 (34.0-46.0) % MCV 87.5 (80.0-100.0) fL MCH 27.8 (25.0-35.0) pg MCHC 31.7 (31.0-37.0) g/dL RDW 13.7 (11.5-15.5) % Plt Count 127 L (150-450) k/uL Neutrophils % 77 % Lymphocytes % 16 % Monocytes % 4 % Eosinophils % 2 % Basophils % 0 % Neutrophils # 4.4 (1.3-7.7) k/uL Lymphocytes # 0.9 L (1.0-4.8) k/uL Monocytes # 0.3 (0-1.0) k/uL Eosinophils # 0.1 (0-0.7) k/uL Basophils # 0.0 (0-0.2) k/uL PT 15.6 H (9.0-12.0) sec INR 1.6 H (<1.2) APTT 28.2 (22.0-30.0) sec Sodium 140 (137-145) mmol/L Potassium 2.7 L* (3.5-5.1) mmol/L Chloride 121 H (98-107) mmol/L Carbon Dioxide 14 L (22-30) mmol/L Anion Gap 5 mmol/L BUN 16 (7-17) mg/dL Creatinine 0.38 L (0.52-1.04) mg/dL Est GFR (CKD-EPI)AfAm >90 (>60 ml/min/1.73 sqM) Est GFR (CKD-EPI)NonAf >90 (>60 ml/min/1.73 sqM) Glucose 91 (74-99) mg/dL Calcium 5.5 L* (8.4-10.2) mg/dL Magnesium 1.0 L (1.6-2.3) mg/dL Total Bilirubin 0.5 (0.2-1.3) mg/dL AST 22 (14-36) U/L ALT 14 (4-34) U/L Alkaline Phosphatase 73 (38-126) U/L Troponin I (0.000-0.034) ng/mL Total Protein 4.2 L (6.3-8.2) g/dL Albumin 2.0 L (3.5-5.0) g/dL TSH 0.955 (0.465-4.680) mIU/L Free T4 1.27 (0.78-2.19) ng/dL Free T3 pg/mL 3.3 (2.8-5.3) pg/ml 12/13/19 Range/Units 15:36 WBC (3.8-10.6) k/uL RBC (3.80-5.40) m/uL Hgb (11.4-16.0) gm/dL Hct (34.0-46.0) % MCV (80.0-100.0) fL MCH (25.0-35.0) pg MCHC (31.0-37.0) g/dL RDW (11.5-15.5) % Plt Count (150-450) k/uL Neutrophils % % Lymphocytes % % Monocytes % % Eosinophils % % Basophils % % Neutrophils # (1.3-7.7) k/uL Lymphocytes # (1.0-4.8) k/uL Monocytes # (0-1.0) k/uL Eosinophils # (0-0.7) k/uL Basophils # (0-0.2) k/uL PT (9.0-12.0) sec INR (<1.2) APTT (22.0-30.0) sec Sodium (137-145) mmol/L Potassium (3.5-5.1) mmol/L Chloride (98-107) mmol/L Carbon Dioxide (22-30) mmol/L Anion Gap mmol/L BUN (7-17) mg/dL Creatinine (0.52-1.04) mg/dL Est GFR (CKD-EPI)AfAm (>60 ml/min/1.73 sqM) Est GFR (CKD-EPI)NonAf (>60 ml/min/1.73 sqM) Glucose (74-99) mg/dL Calcium (8.4-10.2) mg/dL Magnesium (1.6-2.3) mg/dL Total Bilirubin (0.2-1.3) mg/dL AST (14-36) U/L ALT (4-34) U/L Alkaline Phosphatase (38-126) U/L Troponin I 0.405 H* (0.000-0.034) ng/mL Total Protein (6.3-8.2) g/dL Albumin (3.5-5.0) g/dL TSH (0.465-4.680) mIU/L Free T4 (0.78-2.19) ng/dL Free T3 pg/mL (2.8-5.3) pg/ml - Radiology Data Radiology results: image reviewed (Chest x-ray shows no acute process) Critical Care Time Critical Care Time: Yes Total Critical Care Time: 33 Disposition Clinical Impression: Atrial fibrillation, Hypokalemia, Hypomagnesemia, Hypocalcemia Disposition: ADMITTED IP TO THIS [facility] Condition: Serious Referrals: Link Dsouza MD [Primary Care Provider] - 1-2 days Decision Time: 16:54
[2019-12-13 15:59] LABS: ALT 14 U/L (4-34); AST 22 U/L (14-36); African American GFR (CKD) >90 (>60 ml/min/1.73 sqM); Alkaline Phosphatase 73 U/L (38-126); Anion Gap 5 mmol/L; Blood Urea Nitrogen 16 mg/dL (7-17); Carbon Dioxide 14 mmol/L (22-30); Chloride 121 mmol/L (98-107); Glucose 91 mg/dL (74-99); Non-African American GFR(CKD) >90 (>60 ml/min/1.73 sqM); Sodium 140 mmol/L (137-145); Total Bilirubin 0.5 mg/dL (0.2-1.3); Total Protein 4.2 g/dL (6.3-8.2)
[2019-12-13] MEDS: DILTIAZEM 125 MG in SODIUM CHLORIDE 0.9% 100 ML IV SCH (16:02)
[2019-12-13 16:04] LABS: Basophils % (A) 0 %; Eosinophils # (A) 0.1 k/uL (0-0.7); Eosinophils % (A) 2 %; HCT 34.3 % (34.0-46.0); HGB 10.9 gm/dL (11.4-16.0); Lymphocytes # (A) 0.9 k/uL (1.0-4.8); Lymphocytes % (A) 16 %; MCH 27.8 pg (25.0-35.0); MCHC 31.7 g/dL (31.0-37.0); MCV 87.5 fL (80.0-100.0); Mean Platelet Volume 8.7; Monocytes # (A) 0.3 k/uL (0-1.0); Monocytes % (A) 4 %; Neutrophils # (A) 4.4 k/uL (1.3-7.7); Neutrophils % (A) 77 %; Platelet Count 127 k/uL (150-450); RBC 3.92 m/uL (3.80-5.40); RDW 13.7 % (11.5-15.5); WBC 5.8 k/uL (3.8-10.6)
[2019-12-13 16:11] LABS: Calcium 5.5 mg/dL (8.4-10.2); Potassium 2.7 mmol/L (3.5-5.1)
[2019-12-13 16:15] LABS: INR 1.6 (<1.2); Partial Thromboplastin Time 28.2 sec (22.0-30.0); Prothrombin Time 15.6 sec (9.0-12.0); T4, Free (Free Thyroxine) 1.27 ng/dL (0.78-2.19)
[2019-12-13] MEDS ORDERED: POTASSIUM CHLORIDE 2 MEQ/ML 20 ML VIAL IVPB STA (16:21)
[2019-12-13] MEDS ORDERED: POTASSIUM CHLORIDE ER 20 MEQ TAB.ER PO STA (16:21)
[2019-12-13] MEDS ORDERED: CALCIUM GLUCONATE 2 GM in SODIUM CHLORIDE 0.9% 100 ML IVPB ONE (16:22)
[2019-12-13] MEDS ORDERED: MAGNESIUM OXIDE 400 MG TAB PO STA (16:23)
--- NOTE | 2019-12-13 16:40 | XR ---
EXAMINATION TYPE: XR chest 1V portable DATE OF EXAM: 12/13/2019 COMPARISON: Prior chest x-ray 08/07/2019 HISTORY: Dysrhythmia TECHNIQUE: Single frontal view of the chest is obtained. FINDINGS: There is no focal air space opacity, pleural effusion, or pneumothorax seen. The cardiac silhouette size is stable, enlarged. Probable pleural reaction present along the left heart border is similar to prior exam The osseous structures are intact. IMPRESSION: No acute process.
[2019-12-13] MEDS ORDERED: NALOXONE 0.4 MG/ML 1 ML VIAL IV PRN (16:55)
[2019-12-13] MEDS: POTASSIUM CHLORIDE 20 MEQ in WATER FOR INJECTION 1 100ML.BAG IVPB SCH ×2 (17:32→20:35)
[2019-12-13] MEDS: CALCIUM CARBONATE 500 MG CHEWABLE PO SCH ×2 (17:44→20:37)
[2019-12-13] MEDS: HEPARIN SODIUM,PORCINE 5,000 UNIT/ML 1 ML VIAL SQ SCH (17:44)
[2019-12-13] MEDS: MAGNESIUM SULFATE-D5W PMX 1 GM in DEXTROSE/WATER 1 100ML.BAG IVPB SCH ×2 (19:09→20:35)
[2019-12-13] MEDS ORDERED: SODIUM CHLORIDE 0.9% 1,000 ML with POTASSIUM CHLORIDE 40 MEQ IV SCH ×2 (20:15)
[2019-12-13] MEDS: 0.9% NACL WITH KCL 40 MEQ/L 1,000 ML IV SCH (20:45)
--- NOTE | 2019-12-13 21:07 | P.CNPUL ---
History of Present Illness Consult date: 12/13/19 Reason for consult: dyspnea Chief complaint: Patient came into the hospital with palpitation and heart racing History of present illness: This is a 69-year-old female who was seen evaluated examined on third floor, patient has some ongoing shortness of breath and heart is beating faster came into the hospital for further evaluation she was found to have significant electrolyte imbalance with hypokalemia and patient is treated accordingly she has been dehydrated she has been nauseous which she attributes it to Bactrim started taking it 2-3 days ago for cellulitis of the left flank which is thought to be herpes zoster she did received a course of oral tracks previously, rashes started about a week to 10 days ago, 2 days after starting Bactrim she developed nausea vomiting and not eating and drinking much, labs noted to be abnormal, she had a significant history and well-known to me from left lower lobe nodule which was slightly positive on PET scan underwent a vaginal resection back in July 2019, 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 let's Review of Systems All systems: negative Past Medical History Past Medical History: Asthma, Hypertension, Pneumonia Additional Past Medical History / Comment(s): states has pulmonary nodule History of Any Multi-Drug Resistant Organisms: None Reported Past Surgical History: Hysterectomy, Joint Replacement, Orthopedic Surgery Additional Past Surgical History / Comment(s): julien knee replacement, bunionectomy, bronchoscopy with bx, D&C Past Anesthesia/Blood Transfusion Reactions: No Reported Reaction Past Psychological History: No Psychological Hx Reported Additional Psychological History / Comment(s): clausterphobia Smoking Status: Never smoker Past Alcohol Use History: None Reported Past Drug Use History: None Reported - Past Family History Sister(s) Family Medical History: Cancer Additional Family Medical History / Comment(s): breast Medications and Allergies Home Medications Medication Instructions Recorded Confirmed Type Metoprolol Succinate [Toprol XL] 25 mg PO DAILY 12/13/19 12/13/19 History Allergies Allergy/AdvReac Type Severity Reaction Status Date / Time No Known Allergies Allergy Verified 12/13/19 18:56 Physical Exam Vitals: Vital Signs Temp Pulse Pulse Resp BP BP BP 12/13/19 19:39 98.2 F 81 18 178/103 148/96 12/13/19 19:01 96.5 F L 93 16 186/110 156/114 12/13/19 17:48 85 18 148/96 12/13/19 16:00 156 H 16 102/85 12/13/19 15:40 156 H 16 105/90 12/13/19 15:18 98.2 F 156 H 18 111/82 Pulse Ox 12/13/19 19:39 93 L 12/13/19 19:01 93 L 12/13/19 17:48 97 12/13/19 16:00 95 12/13/19 15:40 96 12/13/19 15:18 95 Intake and Output 12/13/19 12/13/19 12/13/19 06:59 14:59 22:59 Other: Weight 113.398 kg - Constitutional General appearance: average body habitus, cooperative, disheveled, mild distress - EENT Eyes: EOMI, PERRLA ENT: normal oropharynx Ears: bilateral: normal - Neck Neck: normal ROM Carotids: bilateral: upstroke normal Thyroid: bilateral: normal size - Respiratory Respiratory: bilateral: CTA - Cardiovascular Rhythm: regular Heart sounds: normal: S1, S2 - Gastrointestinal Rash is present on the left flank consistent with herpes zoster with mild cellulitis General gastrointestinal: decreased bowel sounds - Neurologic Neurologic: CNII-XII intact - Musculoskeletal Musculoskeletal: gait normal, generalized weakness, strength equal bilaterally - Psychiatric Psychiatric: A&O x's 3, appropriate affect, intact judgment & insight Results - Laboratory Findings CBC and BMP: 12/13/19 15:36 12/13/19 15:36 PT/INR, D-dimer PT 15.6 sec (9.0-12.0) H 12/13/19 15:36 INR 1.6 (<1.2) H 12/13/19 15:36 Abnormal lab findings: Abnormal Labs 12/13/19 12/13/19 12/13/19 15:36 15:36 15:36 Hgb 10.9 L Plt Count 127 L Lymphocytes # 0.9 L PT 15.6 H INR 1.6 H Potassium 2.7 L* Chloride 121 H Carbon Dioxide 14 L Creatinine 0.38 L Calcium 5.5 L* Magnesium 1.0 L Troponin I Total Protein 4.2 L Albumin 2.0 L 12/13/19 15:36 Hgb Plt Count Lymphocytes # PT INR Potassium Chloride Carbon Dioxide Creatinine Calcium Magnesium Troponin I 0.405 H* Total Protein Albumin - Diagnostic Findings Chest x-ray: report reviewed (Finding as noted above), image reviewed Assessment and Plan Assessment: Intravascular depletion and dehydration Acute metabolic acidosis Severe hyponatremia Severe hypokalemia Mildly elevated troponin likely demand ischemia, would recommend to trend it Mild cellulitis of left flank Left flank herpes zoster History of left lower lobe nodule found to be nonspecific organizing pneumonia likely related to unknown infectious process Plan: Agree with gentle rehydration Replace potassium and calcium Agree to hold on antibiotics Will get a computed tomography scan of chest without contrast Further recommendations pending plan of care as per clinical response of the patient Time with Patient: Greater than 30
--- NOTE | 2019-12-13 21:57 | CT ---
EXAMINATION TYPE: CT chest wo con DATE OF EXAM: 12/13/2019 COMPARISON: Prior CT 06/29/2019, chest x-ray 12/13/2019 HISTORY: Headache, nausea, vomiting. CT DLP: 565.7 mGycm. Automated Exposure Control for Dose Reduction was Utilized. TECHNIQUE: CT scan of the thorax is performed without IV contrast. FINDINGS: Lack of contrast could compromise sensitivity of the exam. LUNGS: The lungs show an interval probable post procedural change, there clips present along the left hemidiaphragm with some possible chronic pleural reaction. Thickening along the fissure shows a amie lar appearance to prior exam. MEDIASTINUM: Lack of IV contrast is noted to limit evaluation for mediastinal and especially hilar a denopathy. There are no definitive greater than 1 cm hilar or mediastinal lymph nodes. No cardiomeg sandy or pericardial effusion is seen. There are some coronary artery calcifications. Only minimal uzma cardial fluid. OTHER: No additional significant abnormality is seen. IMPRESSION: Postprocedural changes.
[2019-12-13 22:01] LABS: Prothrombin Time 10.6 sec (9.0-12.0)
[2019-12-13 22:08] LABS: C Reactive Protein 28.8 mg/L (<10.0)
[2019-12-13] MEDS ORDERED: Potassium Replacement Protocol 1 EACH MISC MISCELLANE PRN (22:17)
[2019-12-13] MEDS ORDERED: Magnesium Replacement Protocol 1 EACH MISC MISCELLANE PRN (22:18)
--- NOTE | 2019-12-13 22:45 | HP ---
HISTORY AND PHYSICAL DATE OF SERVICE: 12/13/2019 CHIEF COMPLAINTS: Weakness and dizziness. HISTORY OF PRESENT ILLNESS: This 69-year-old woman with a past medical history of multiple medical problems including asthma, hypertension, history of pneumonia, DJD being followed by Dr. Schmitt in the outpatient setting, recently had an episode of left-sided shingles around the D7 area. The patient also had suspected and cellulitis and received antibiotics Bactrim to which the patient reacted and the patient apparently previously also had a biopsy for left lower lobe mass also. The biopsy report came back as acute and organizing granulomatous pneumonia. Nonspecific chronic bronchial lytic peribronchial metaplasia was also noted. Currently the patient has significant weakness and the patient came to [facility] for multiple electrolytes abnormalities including potassium 2.7, calcium 5.5 and magnesium of 1. The patient also had atrial fibrillation with a fast ventricular rate. Patient started on Cardizem drip. Patient admitted for further evaluation and treatment. Cardiology evaluation has been sought at this time. There is no history of fever, rigors. No history of headache, loss of consciousness, seizures at this time. PAST MEDICAL HISTORY: History of asthma, hypertension, pneumonia, history of pulmonary nodule with organizing pneumonia possibly recently. MEDICATIONS: Prior to admission, metoprolol 25 mg daily. ALLERGIES: None. FAMILY HISTORY: History of breast cancer in the family. SOCIAL HISTORY: No history of smoking. No history of alcohol intake. REVIEW OF SYSTEMS: ENT: No diminished vision. No diminished hearing. Cardiovascular as mentioned earlier. Respiratory: As mentioned earlier. GI no nausea, vomiting. : No dysuria. Nervous system: No numbness or weakness. Allergy/Immunology: No asthma or hayfever. Musculoskeletal as mentioned earlier. Hematology/Oncology: No history of anemia. Endocrine: No history of diabetes or hypothyroidism. CONSTITUTIONAL: As mentioned earlier. DERMATOLOGY: Negative. RHEUMATOLOGY negative. PSYCHIATRY as mentioned earlier. PHYSICAL EXAMINATION: Alert and oriented x3. Pulse is 81. Blood pressure 178/103, respiration 18, temperature 98.2, pulse ox 98% on room air. HEENT is conjunctivae normal. Oral mucosa moist. NECK is no jugular venous distention. No carotid bruit. No lymph node enlargement. Cardiovascular system: S1, S2 muffled. Irregular. Respiration: Breath sounds diminished in the bases. A few scattered rhonchi. ABDOMEN: Soft, nontender. No mass palpable. D7 to D8 herpes zoster which is seeding on the left side present. ABDOMEN: Soft. Nontender. No mass palpable. No ascites. LEGS: No edema. No swelling. NERVOUS SYSTEM: Higher functions as mentioned earlier. Moves all 4 limbs. No focal motor or sensory deficit. LYMPHATICS: No lymph nodes palpable in the neck, axillae or groin. JOINTS: No active deforming arthropathy. SKIN: As mentioned earlier. LABS: At this time shows WBC 5.2, hemoglobin 10.9, sodium 140, potassium 2.7 and CO2 is 14. Calcium is 5.5, magnesium is 5. Troponin 0.405. Albumin is 2. ASSESSMENT: 1. Atrial fibrillation with fast ventricular rate. 2. Troponin 0.405, rule out acute [id number]-elevation myocardial infarction. 3. 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 4. Acidosis. 5. Elevated INR, mild coagulopathy of undetermined origin. 6. Anemia, normocytic. 7. History of recent shingles herpes zoster on the left side. 8. History of asthma. 9. Hypertension. 10.History of pneumonia. 11.History of pulmonary nodule with possibly organizing pneumonia with biopsy on the left lower lobe recently. 12.History of degenerative joint disease. 13.Hysterectomy. 14.History of claustrophobia. 15.Obesity with body mass index 40.4. 16.FULL CODE. RECOMMENDATIONS AND DISCUSSION: In this 69-year-old woman who presented with multiple complex medical issues, we will monitor the patient closely. The patient has multiple abnormalities including cardiac abnormalities and dyselectrolytemia. Exact etiology is unknown at this time. We will continue the Cardizem. Obtain the full cardiac workup including 2D echo with Doppler. We will supplement lytes and repeat lytes tomorrow. Covid-19 has been tested. I would also recommend pulmonary consultation and I would also order basic autoimmune workup as well. A UA with micro is not available. We will check the urine for any sediments. TSH was normal. Overall prognosis guarded. Home medications continued. Discussed with the patient who understands and agrees. A copy of this dictation being forwarded to Dr. Dsouza who is the primary physician. MMODL / IJN: [id number] /
[2019-12-14] MEDS: HEPARIN SODIUM,PORCINE 5,000 UNIT/ML 1 ML VIAL SQ SCH ×2 (00:04→09:53)
[2019-12-14 02:59] LABS: Appearance,Urine Clear (Clear); Bilirubin,Urine Negative (Negative); Blood,Urine Small (Negative); Color,Urine Light Yellow; Glucose,Urine (UA) Negative (Negative); Ketones,Urine Negative (Negative); Leukocyte Esterase,Urine Negative (Negative); Mucus,Urine Rare /hpf; Nitrite,Urine Negative (Negative); Protein,Urine Negative (Negative); RBC,Urine 3 /hpf (0-5); Specific Gravity,Urine 1.008 (1.001-1.035); Urobilinogen,Urine <2.0 mg/dL (<2.0); WBC,Urine 1 /hpf (0-5)
[2019-12-14 03:28] LABS: Basophils % (A) 0 %; Eosinophils # (A) 0.1 k/uL (0-0.7); Eosinophils % (A) 2 %; HCT 46.3 % (34.0-46.0); Lymphocytes # (A) 1.7 k/uL (1.0-4.8); Lymphocytes % (A) 17 %; MCH 28.7 pg (25.0-35.0); MCHC 33.4 g/dL (31.0-37.0); MCV 85.9 fL (80.0-100.0); Mean Platelet Volume 8.6; Monocytes # (A) 0.7 k/uL (0-1.0); Monocytes % (A) 7 %; Neutrophils # (A) 6.9 k/uL (1.3-7.7); Neutrophils % (A) 72 %; Platelet Count 159 k/uL (150-450); RBC 5.39 m/uL (3.80-5.40); RDW 13.8 % (11.5-15.5); WBC 9.6 k/uL (3.8-10.6)
[2019-12-14 03:32] LABS: HGB 15.5 gm/dL (11.4-16.0)
[2019-12-14 03:33] LABS: African American GFR (CKD) >90 (>60 ml/min/1.73 sqM); Anion Gap 12 mmol/L; Calcium 9.9 mg/dL (8.4-10.2); Carbon Dioxide 17 mmol/L (22-30); Chloride 108 mmol/L (98-107); Cholesterol 218 mg/dL (<200); Glucose 101 mg/dL (74-99); HDL Cholesterol 42 mg/dL (40-60); LDL Cholesterol,Calculated 139 mg/dL (0-99); Non-African American GFR(CKD) 90 (>60 ml/min/1.73 sqM); Phosphorus 3.3 mg/dL (2.5-4.5); Sodium 137 mmol/L (137-145); Total Protein 7.3 g/dL (6.3-8.2); Triglycerides 184 mg/dL (<150)
[2019-12-14 04:06] LABS: ALT 23 U/L (4-34); AST 41 U/L (14-36); Alkaline Phosphatase 120 U/L (38-126); Blood Urea Nitrogen 19 mg/dL (7-17); Potassium 5.6 mmol/L (3.5-5.1)
[2019-12-14] MEDS: MAGNESIUM OXIDE 400 MG TAB PO SCH (09:53)
[2019-12-14] MEDS: CALCIUM CARBONATE 500 MG CHEWABLE PO SCH ×3 (09:53→20:35)
--- NOTE | 2019-12-14 10:40 | P.CRDCN ---
History of Present Illness History of present illness: Mikaela Cruz This is Dr. New dictating a consult on this patient The patient was interviewed and examined by me IMPRESSION / ASSESSMENT: Paroxysmal atrial fibrillation with RVR, symptomatic Type 2 diabetes on insulin Likely lab error with a significant change in hemoglobin potassium calcium magnesium in 2 serial exams Unclear why CRP is elevated No clear-cut ST segment abnormalities on ECG Paroxysms of A. fib documented PLAN: Rate control for A. fib with RVR 2-D echo and Doppler study Start heparin Continue Cardizem for rate control Start metoprolol 50 mg by mouth daily HPI 69-year-old female presented with dizziness and palpitations, recurrent for several hours In the past she had dizziness but never x-rays palpitations. Now she feels that her heart is racing She does take metoprolol in the morning Afebrile, pulse rate 156, normal respirations, blood pressure 111/82 mmHg, 102/85 mmHg Yesterday when she came in her potassium was 2.7 calcium was 5.5 and magnesium was 1.0, hemoglobin 10.9 Today her potassium is 5.6 calcium is 9.9 and magnesium is 2.2, today hemoglobin is 15.5 She does have borderline troponins Patient complained of shortness of breath repeatedly and then later became dizzy Main complaint is shortness of breath Thereafter she felt a heart rate increase and palpitations and racing heart She has an upset stomach and nausea those headaches ROS: No fever chills or rigors, no cough, phlegm or expectoration, no nausea, vomiting or diarrhea, no hematuria, dysuria, no musculoskeletal complaints, no strokes or seizures, no skin lesions. EXAMINATION: Blood pressure 154/71 mmHg 132/94, afebrile Heart rates in the 70s respirations 14 Pulse ox normal Irregular rhythm intermittently No cardiac murmurs Crackles at the left side Abdomen is soft nontender no edema REVIEW OF LABS, ECG & MEDICAL DATA Hemoglobin 10.9, platelet count 137,000 BUN 16 creatinine 0.4 Potassium low at 2.7 Low magnesium of 1.0 low calcium of 5.5 No specific abnormalities on chest x-ray Twelve-lead ECG shows paroxysms of atrial fibrillation with RVR Troponins of 0.68 and 0.53 C-reactive protein elevated at 28 LDL 139 TSH 0.95 Past Medical History Past Medical History: Asthma, Hypertension, Pneumonia Additional Past Medical History / Comment(s): states has pulmonary nodule History of Any Multi-Drug Resistant Organisms: None Reported Past Surgical History: Hysterectomy, Joint Replacement, Orthopedic Surgery Additional Past Surgical History / Comment(s): julien knee replacement, bunionectomy, bronchoscopy with bx, D&C Past Anesthesia/Blood Transfusion Reactions: No Reported Reaction Past Psychological History: No Psychological Hx Reported Additional Psychological History / Comment(s): clausterphobia Smoking Status: Never smoker Past Alcohol Use History: None Reported Past Drug Use History: None Reported - Past Family History Sister(s) Family Medical History: Cancer Additional Family Medical History / Comment(s): breast Medications and Allergies Home Medications Medication Instructions Recorded Confirmed Type Metoprolol Succinate [Toprol XL] 25 mg PO DAILY 12/13/19 12/13/19 History Allergies Allergy/AdvReac Type Severity Reaction Status Date / Time No Known Allergies Allergy Verified 12/13/19 18:56 Physical Exam Vitals: Vital Signs Temp Pulse Pulse Resp BP BP BP 12/14/19 08:00 98.1 F 72 14 132/94 12/14/19 04:54 98.1 F 71 18 154/71 12/13/19 23:20 98.1 F 84 18 146/97 12/13/19 20:00 82 18 12/13/19 19:39 98.2 F 81 18 178/103 148/96 12/13/19 19:01 96.5 F L 93 16 186/110 156/114 12/13/19 17:48 85 18 148/96 12/13/19 16:00 156 H 16 102/85 12/13/19 15:40 156 H 16 105/90 12/13/19 15:18 98.2 F 156 H 18 111/82 Pulse Ox 12/14/19 08:00 94 L 12/14/19 04:54 99 12/13/19 23:20 92 L 12/13/19 20:00 12/13/19 19:39 93 L 12/13/19 19:01 93 L 12/13/19 17:48 97 12/13/19 16:00 95 12/13/19 15:40 96 12/13/19 15:18 95 Intake and Output 12/13/19 12/14/19 12/14/19 22:59 06:59 14:59 Intake Total 200 Output Total 600 Balance -400 Intake: Intake, IV Titration 200 Amount Magnesium Sulfate-D5w Pmx 100 1 gm In Dextrose/Water 1 100ml.bag @ 100 mls/hr IVPB Q1H [facility] Rx#: [id number] Potassium Chloride 20 meq 100 In Water For Injection 1 100ml.bag @ 50 mls/hr IVPB Q2H [facility] Rx#: [id number] Output: Urine 600 Other: Voiding Method Toilet Toilet # Voids 1 Weight 113.398 kg 114.3 kg Results 12/14/19 02:52 12/14/19 02:52 Cardiac Enzymes 12/13/19 12/13/19 12/13/19 Range/Units 15:36 15:36 21:22 AST 22 (14-36) U/L Troponin I 0.405 H* 0.686 H* (0.000-0.034) ng/mL 12/14/19 12/14/19 Range/Units 02:52 04:25 AST 41 H (14-36) U/L Troponin I 0.533 H* (0.000-0.034) ng/mL Coagulation 12/13/19 12/13/19 Range/Units 15:36 21:22 PT 15.6 H 10.6 (9.0-12.0) sec APTT 28.2 (22.0-30.0) sec Lipids 12/14/19 Range/Units 02:52 Triglycerides 184 H (<150) mg/dL Cholesterol 218 H (<200) mg/dL HDL Cholesterol 42 (40-60) mg/dL CBC 12/13/19 12/14/19 Range/Units 15:36 02:52 WBC 5.8 9.6 (3.8-10.6) k/uL RBC 3.92 5.39 (3.80-5.40) m/uL Hgb 10.9 L 15.5 D (11.4-16.0) gm/dL Hct 34.3 46.3 H (34.0-46.0) % Plt Count 127 L 159 (150-450) k/uL Comprehensive Metabolic Panel 12/13/19 12/14/19 Range/Units 15:36 02:52 Sodium 140 137 (137-145) mmol/L Potassium 2.7 L* 5.6 H (3.5-5.1) mmol/L Chloride 121 H 108 H (98-107) mmol/L Carbon Dioxide 14 L 17 L (22-30) mmol/L BUN 16 19 H (7-17) mg/dL Creatinine 0.38 L 0.66 (0.52-1.04) mg/dL Glucose 91 101 H (74-99) mg/dL Calcium 5.5 L* 9.9 (8.4-10.2) mg/dL AST 22 41 H (14-36) U/L ALT 14 23 (4-34) U/L Alkaline Phosphatase 73 120 (38-126) U/L Total Protein 4.2 L 7.3 (6.3-8.2) g/dL Albumin 2.0 L 4.0 (3.5-5.0) g/dL Current Medications Generic Name Dose Route Start Last Admin Trade Name Freq PRN Reason Stop Dose Admin Calcium Carbonate/Glycine 1,000 mg 12/13/19 16:30 12/14/19 09:53 Tums PO 1,000 mg TID [facility] Administration Heparin Sodium (Porcine) 5,000 unit 12/13/19 17:00 12/14/19 09:53 Heparin SQ 5,000 unit Q8HR [facility] Administration Diltiazem HCl 125 mg/ Sodium 125 mls @ 5 mls/hr 12/13/19 15:45 12/13/19 16:02 Chloride IV 5 mg/hr .Q24H [facility] 5 mls/hr Administration 5 MG/HR Potassium Chloride/Sodium Chloride 1,000 mls @ 75 mls/hr 12/13/19 20:15 12/13/19 20:45 Ns-Kcl 40 Meq/L Iv Solution IV 75 mls/hr .[id number] [facility] Administration Magnesium Oxide 400 mg 12/14/19 09:00 12/14/19 09:53 Mag-Ox PO 400 mg DAILY [facility] Administration Miscellaneous Information 1 each 12/13/19 22:17 Potassium Per Protocol MISCELLANE DAILY PRN Per Protocol Protocol Miscellaneous Information 1 each 12/13/19 22:18 Magnesium Per Protocol MISCELLANE DAILY PRN Per Protocol Protocol Naloxone HCl 0.2 mg 12/13/19 16:55 Narcan IV Q2M PRN Opioid Reversal Intake and Output 12/13/19 12/14/19 12/14/19 22:59 06:59 14:59 Intake Total 200 Output Total 600 Balance -400 Intake: Intake, IV Titration 200 Amount Magnesium Sulfate-D5w Pmx 100 1 gm In Dextrose/Water 1 100ml.bag @ 100 mls/hr IVPB Q1H [facility] Rx#: [id number] Potassium Chloride 20 meq 100 In Water For Injection 1 100ml.bag @ 50 mls/hr IVPB Q2H [facility] Rx#: [id number] Output: Urine 600 Other: Voiding Method Toilet Toilet # Voids 1 Weight 113.398 kg 114.3 kg 12/14/19 02:52 12/14/19 02:52
[2019-12-14] MEDS ORDERED: HEPARIN SODIUM,PORCINE 5,000 UNIT/ML 1 ML VIAL IV PRN (10:46)
[2019-12-14] MEDS: 0.9% NACL WITH KCL 40 MEQ/L 1,000 ML IV SCH (10:51)
[2019-12-14] MEDS: HEPARIN SOD,PORK IN 0.45% NACL 25,000 UNIT in 0.45% NACL 1 250ML.BAG IV SCH (11:18)
[2019-12-14] MEDS: METOPROLOL TARTRATE 50 MG TAB PO SCH ×2 (11:19→20:35)
[2019-12-14 11:33] LABS: Basophils % (A) 1 %; Eosinophils # (A) 0.1 k/uL (0-0.7); Eosinophils % (A) 2 %; HCT 43.9 % (34.0-46.0); HGB 14.2 gm/dL (11.4-16.0); Lymphocytes # (A) 1.3 k/uL (1.0-4.8); Lymphocytes % (A) 19 %; MCH 28.4 pg (25.0-35.0); MCHC 32.2 g/dL (31.0-37.0); MCV 88.2 fL (80.0-100.0); Mean Platelet Volume 8.3; Monocytes # (A) 0.4 k/uL (0-1.0); Monocytes % (A) 6 %; Neutrophils # (A) 4.7 k/uL (1.3-7.7); Neutrophils % (A) 71 %; Platelet Count 163 k/uL (150-450); RBC 4.98 m/uL (3.80-5.40); WBC 6.6 k/uL (3.8-10.6)
[2019-12-14 11:44] LABS: Prothrombin Time 10.5 sec (9.0-12.0)
[2019-12-14 11:47] LABS: Partial Thromboplastin Time 21.4 sec (22.0-30.0)
[2019-12-14] MEDS: DILTIAZEM 125 MG in SODIUM CHLORIDE 0.9% 100 ML IV SCH (14:28)
--- NOTE | 2019-12-14 17:41 | CT ---
EXAMINATION TYPE: CT brain wo con DATE OF EXAM: 12/14/2019 COMPARISON: None HISTORY: DIZZINESS CT DLP: 1062.4 mGycm Automated exposure control for dose reduction was used. There is cerebral cortical atrophy. There is no mass effect nor midline shift. There is no sign of in tracranial hemorrhage. Calvarium is intact. IMPRESSION: Mild atrophy. No acute intracranial abnormality.
--- NOTE | 2019-12-14 19:18 | PN ---
PROGRESS NOTE DATE OF SERVICE: 12/14/2019 This 69-year-old woman who was admitted with weakness and dizziness, was found to have atrial fibrillation with fast ventricular rate. Troponin is also elevated. Multiple dyselectrolytemia was also noted yesterday. The patient was hypokalemia and hypomagnesemia which was corrected. The cholesterol is elevated to 218, LDL is 139 and troponin 0.533. Sodium is 137 and glucose is 101 and WBC is 6.6, hemoglobin 14.2. The patient being closely monitored. Cardiology has seen the patient and recommend IV heparin at this time. The chest CT showed postoperative changes with 3 clips. Pulmonary, Dr. Mcclain following the patient closely. PAST MEDICAL HISTORY: Reviewed. REVIEW OF SYSTEMS: CARDIOVASCULAR system: As mentioned earlier. RESPIRATORY: As mentioned earlier. GI no nausea or vomiting. no dysuria. Nervous systems: No numbness or weakness. CURRENT MEDICATIONS: Reviewed and include: 1. Tums t.i.d. 2. Cardizem drip. 3. Heparin drip. 4. Magnesium oxide. 5. Lopressor 50 mg b.i.d. 6. Narcan. PHYSICAL EXAM: Patient is alert, oriented x3. Pulse 63. Blood pressure 126/78, respirations 16, temperature 98.1, pulse ox 99% on room air. HEENT: Conjunctivae normal. NECK: No JVD. CARDIOVASCULAR: S1, S2 muffled. RESPIRATION: Breath sounds diminished in the bases. Scattered rhonchi. ABDOMEN: Soft. Nontender. NERVOUS SYSTEM: No focal deficits. LABS: CBC within normal limits and APTT 21.5, potassium 5.6 and troponin 0.533 and cholesterol is 218. ASSESSMENT: 1. Atrial fibrillation with fast ventricular rate. 2. Troponin 0.405. Rule out acute xnq-DE-sokunoc-elevation myocardial infarction. 3. Multiple dyselectrolytemia, possibly secondary to diminished p.o. intake. 4. Acidosis, metabolic. 5. Elevated INR. Mild coagulopathy of undetermined origin. 6. Anemia, normocytic. 7. History of recent shingles, herpes zoster D5, 6 on the left side. 8. History of asthma. 9. History of hypertension. 10.History of pneumonia. 11.History of pulmonary nodule with possibly organizing pneumonia with biopsy on the left lower lobe recently. 12.History of degenerative joint disease. 13.History of hysterectomy. 14.History of claustrophobia. 15.Obesity with body mass index of 40.4. 16.FULL CODE. RECOMMENDATIONS AND DISCUSSION: Recommend to continue current medications, monitoring and symptomatic treatment. Otherwise, at this time, I recommend continue with IV heparin. Continue with Cardizem drip and I would also recommend a CT scan of the brain to complete the workup with no IV contrast and continue to monitor. A 2D echo has been ordered. The lytes have not improved. Further recommendations to follow. MMODL / IJN: [id number] /
--- NOTE | 2019-12-14 20:56 | P.PN ---
Subjective Progress Note Date: 12/14/19 Principal diagnosis: Paroxysmal atrial fibrillation Intravascular depletion and dehydration Acute metabolic acidosis Severe hyponatremia Severe hypokalemia Mildly elevated troponin likely demand ischemia, would recommend to trend it Mild cellulitis of left flank Left flank herpes zoster History of left lower lobe nodule found to be nonspecific organizing pneumonia likely related to unknown infectious process 12/14/2019, patient seen and evaluated examined labs reviewed medications reviewed patient has been on A. fib with RVR however rate is better controlled now patient has been on med a prolonged beta joe along with heparin drip as well as cardiovascular services following, patient does have a history of A. fib in the past at the time of knee surgery she was placed on beta joe at that time but elected for no anticoagulation, electrolytes appeared to be improving, patient noted to have a elevated troponin likely demand ischemia echocardiogram has been ordered, patient underwent a computed tomography scan of the chest without contrast left lower lobe postsurgical changes were noted no other nodules are no abnormal Petrin acute processes identified we'll continue to observe her very closely however no therapy will be offered, This is a 69-year-old female who was seen evaluated examined on third floor, patient has some ongoing shortness of breath and heart is beating faster came into the hospital for further evaluation she was found to have significant electrolyte imbalance with hypokalemia and patient is treated accordingly she has been dehydrated she has been nauseous which she attributes it to Bactrim started taking it 2-3 days ago for cellulitis of the left flank which is thought to be herpes zoster she did received a course of oral tracks previously, rashes started about a week to 10 days ago, 2 days after starting Bactrim she developed nausea vomiting and not eating and drinking much, labs noted to be abnormal, she had a significant history and well-known to me from left lower lobe nodule which was slightly positive on PET scan underwent a vaginal resection back in July 2019, 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 let's Objective - Vital Signs Vital signs: Vital Signs Temp 98.1 F 12/14/19 19:54 Pulse 76 12/14/19 19:54 Resp 20 12/14/19 19:54 BP 134/78 12/14/19 19:54 Pulse Ox 95 12/14/19 19:54 Intake & Output 12/14/19 12/14/19 12/15/19 06:59 18:59 06:59 Intake Total 200 412.173 Output Total 600 Balance -400 412.173 Weight 114.3 kg Intake: Intake, IV Titration 200 176.173 Amount Diltiazem 125 mg In 112.167 Sodium Chloride 0.9% 100 ml @ 5 MG/HR 5 mls/hr IV .Q24H [facility] Rx#:[id number] Heparin Sod,Pork in 0.45% 64.006 NaCl 25,000 unit In 0.45 % NaCl 1 250ml.bag @ 8.75 UNITS/KG/HR 10.001 mls/ hr IV .Q24H [facility] Rx#: [id number] Magnesium Sulfate-D5w Pmx 100 1 gm In Dextrose/Water 1 100ml.bag @ 100 mls/hr IVPB Q1H [facility] Rx#: [id number] Potassium Chloride 20 meq 100 In Water For Injection 1 100ml.bag @ 50 mls/hr IVPB Q2H [facility] Rx#: [id number] Oral 236 Output: Urine 600 Other: Voiding Method Toilet Toilet Toilet # Voids 1 - Exam - Constitutional General appearance: average body habitus, cooperative, disheveled, mild distress - EENT Eyes: EOMI, PERRLA ENT: normal oropharynx Ears: bilateral: normal - Neck Neck: normal ROM Carotids: bilateral: upstroke normal Thyroid: bilateral: normal size - Respiratory Respiratory: bilateral: CTA - Cardiovascular Rhythm: regular Heart sounds: normal: S1, S2 - Gastrointestinal Rash is present on the left flank consistent with herpes zoster with mild cellulitis General gastrointestinal: decreased bowel sounds - Neurologic Neurologic: CNII-XII intact - Musculoskeletal Musculoskeletal: gait normal, generalized weakness, strength equal bilaterally - Psychiatric Psychiatric: A&O x's 3, appropriate affect, intact judgment & insight - Labs CBC & Chem 7: 12/14/19 10:55 12/14/19 02:52 Labs: Abnormal Lab Results - Last 24 Hours (Table) 12/13/19 12/13/19 12/13/19 Range/Units 02:49 21:22 21:22 Hct (34.0-46.0) % APTT (22.0-30.0) sec Potassium (3.5-5.1) mmol/L Chloride (98-107) mmol/L Carbon Dioxide (22-30) mmol/L BUN (7-17) mg/dL Glucose (74-99) mg/dL AST (14-36) U/L Troponin I 0.686 H* (0.000-0.034) ng/mL C-Reactive Protein 28.8 H (<10.0) mg/L Triglycerides (<150) mg/dL Cholesterol (<200) mg/dL LDL Cholesterol, Calc (0-99) mg/dL Urine Blood Small H (Negative) Urine Mucus Rare H (None) /hpf 12/14/19 12/14/19 12/14/19 Range/Units 02:52 02:52 04:25 Hct 46.3 H (34.0-46.0) % APTT (22.0-30.0) sec Potassium 5.6 H (3.5-5.1) mmol/L Chloride 108 H (98-107) mmol/L Carbon Dioxide 17 L (22-30) mmol/L BUN 19 H (7-17) mg/dL Glucose 101 H (74-99) mg/dL AST 41 H (14-36) U/L Troponin I 0.533 H* (0.000-0.034) ng/mL C-Reactive Protein (<10.0) mg/L Triglycerides 184 H (<150) mg/dL Cholesterol 218 H (<200) mg/dL LDL Cholesterol, Calc 139 H (0-99) mg/dL Urine Blood (Negative) Urine Mucus (None) /hpf 12/14/19 Range/Units 10:55 Hct (34.0-46.0) % APTT 21.4 L (22.0-30.0) sec Potassium (3.5-5.1) mmol/L Chloride (98-107) mmol/L Carbon Dioxide (22-30) mmol/L BUN (7-17) mg/dL Glucose (74-99) mg/dL AST (14-36) U/L Troponin I (0.000-0.034) ng/mL C-Reactive Protein (<10.0) mg/L Triglycerides (<150) mg/dL Cholesterol (<200) mg/dL LDL Cholesterol, Calc (0-99) mg/dL Urine Blood (Negative) Urine Mucus (None) /hpf Assessment and Plan Assessment: Paroxysmal atrial fibrillation Intravascular depletion and dehydration Acute metabolic acidosis, normalized Severe hyponatremia, normalized Severe hypokalemia now slightly hyperkalemia Mildly elevated troponin likely demand ischemia, would recommend to trend it Mild cellulitis of left flank Left flank herpes zoster History of left lower lobe nodule found to be nonspecific organizing pneumonia likely related to unknown infectious process Plan: Agree with gentle rehydration Replace potassium and calcium Agree to hold on antibiotics Reviewed computed tomography scan of chest without contrast, no active process noted will observe closely Further recommendations pending plan of care as per clinical response of the patient Time with Patient: Greater than 30
[2019-12-15] MEDS: HEPARIN SOD,PORK IN 0.45% NACL 25,000 UNIT in 0.45% NACL 1 250ML.BAG IV SCH (06:39)
[2019-12-15 07:42] LABS: Basophils # (A) 0.1 k/uL (0-0.2); Basophils % (A) 1 %; Eosinophils # (A) 0.2 k/uL (0-0.7); Eosinophils % (A) 2 %; HGB 13.7 gm/dL (11.4-16.0); Hypochromasia Slight; Lymphocytes # (A) 1.6 k/uL (1.0-4.8); Lymphocytes % (A) 19 %; MCH 28.3 pg (25.0-35.0); MCHC 31.8 g/dL (31.0-37.0); Mean Platelet Volume 8.9; Monocytes # (A) 0.5 k/uL (0-1.0); Monocytes % (A) 6 %; Neutrophils % (A) 71 %; Platelet Count 162 k/uL (150-450); RBC 4.83 m/uL (3.80-5.40); RDW 13.7 % (11.5-15.5); WBC 8.4 k/uL (3.8-10.6)
[2019-12-15 08:23] LABS: ALT 17 U/L (4-34); AST 27 U/L (14-36); African American GFR (CKD) >90 (>60 ml/min/1.73 sqM); Albumin 3.4 g/dL (3.5-5.0); Alkaline Phosphatase 124 U/L (38-126); Anion Gap 9 mmol/L; Blood Urea Nitrogen 17 mg/dL (7-17); Calcium 9.3 mg/dL (8.4-10.2); Carbon Dioxide 20 mmol/L (22-30); Chloride 107 mmol/L (98-107); Glucose 102 mg/dL (74-99); Non-African American GFR(CKD) >90 (>60 ml/min/1.73 sqM); Potassium 4.3 mmol/L (3.5-5.1); Sodium 136 mmol/L (137-145); Total Bilirubin 1.3 mg/dL (0.2-1.3); Total Protein 6.4 g/dL (6.3-8.2)
[2019-12-15 09:01] VITALS: RESP 16; TEMP 98.5
[2019-12-15] MEDS: CALCIUM CARBONATE 500 MG CHEWABLE PO SCH (09:03)
[2019-12-15] MEDS: MAGNESIUM OXIDE 400 MG TAB PO SCH (09:04)
[2019-12-15] MEDS: METOPROLOL TARTRATE 50 MG TAB PO SCH (09:04)
[2019-12-15 11:24] VITALS: BP 128/85; PULSE 70
--- NOTE | 2019-12-15 12:35 | P.PN ---
Subjective Progress Note Date: 12/15/19 Principal diagnosis: Paroxysmal atrial fibrillation Intravascular depletion and dehydration Acute metabolic acidosis Severe hyponatremia Severe hypokalemia Mildly elevated troponin likely demand ischemia, would recommend to trend it Mild cellulitis of left flank Left flank herpes zoster History of left lower lobe nodule found to be nonspecific organizing pneumonia likely related to unknown infectious process 12/15/2019, patient seen eval examined during rounds. I reviewed sitting upright in the bed breathing comfortably denies any chest pain patient has been room air breathing comfortably, labs today reviewed protection is normal 4.3, well therapeutic on heparin drip denies any chest pain cough or sputum production denies any breathing difficulty sitting upright on the chair, patient is being treated for A. fib now likely will go on long-term anticoagulation 12/14/2019, patient seen and evaluated examined labs reviewed medications reviewed patient has been on A. fib with RVR however rate is better controlled now patient has been on med a prolonged beta joe along with heparin drip as well as cardiovascular services following, patient does have a history of A. fib in the past at the time of knee surgery she was placed on beta joe at that time but elected for no anticoagulation, electrolytes appeared to be improving, patient noted to have a elevated troponin likely demand ischemia echocardiogram has been ordered, patient underwent a computed tomography scan of the chest without contrast left lower lobe postsurgical changes were noted no other nodules are no abnormal Petrin acute processes identified we'll continue to observe her very closely however no therapy will be offered, This is a 69-year-old female who was seen evaluated examined on third floor, patient has some ongoing shortness of breath and heart is beating faster came into the hospital for further evaluation she was found to have significant electrolyte imbalance with hypokalemia and patient is treated accordingly she has been dehydrated she has been nauseous which she attributes it to Bactrim started taking it 2-3 days ago for cellulitis of the left flank which is thought to be herpes zoster she did received a course of oral tracks previously, rashes started about a week to 10 days ago, 2 days after starting Bactrim she developed nausea vomiting and not eating and drinking much, labs noted to be abnormal, she had a significant history and well-known to me from left lower lobe nodule which was slightly positive on PET scan underwent a vaginal resection back in July 2019, 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 let's Objective - Vital Signs Vital signs: Vital Signs Temp 98.5 F 12/15/19 08:00 Pulse 70 12/15/19 11:59 Resp 16 12/15/19 11:22 BP 128/85 12/15/19 11:22 Pulse Ox 95 12/15/19 11:22 Intake & Output 12/14/19 12/15/19 12/15/19 18:59 06:59 18:59 Intake Total 412.173 247.563 180 Balance 412.173 247.563 180 Weight 113.8 kg Intake: Intake, IV Titration 176.173 247.563 Amount Diltiazem 125 mg In 112.167 71.75 Sodium Chloride 0.9% 100 ml @ 5 MG/HR 5 mls/hr IV .Q24H [facility] Rx#:[id number] Heparin Sod,Pork in 0.45% 64.006 175.813 NaCl 25,000 unit In 0.45 % NaCl 1 250ml.bag @ 8.75 UNITS/KG/HR 10.001 mls/ hr IV .Q24H [facility] Rx#: [id number] Oral 236 180 Other: Voiding Method Toilet Toilet # Voids 1 1 0 # Bowel Movements 0 - Exam - Constitutional General appearance: average body habitus, cooperative, disheveled, mild distress - EENT Eyes: EOMI, PERRLA ENT: normal oropharynx Ears: bilateral: normal - Neck Neck: normal ROM Carotids: bilateral: upstroke normal Thyroid: bilateral: normal size - Respiratory Respiratory: bilateral: CTA - Cardiovascular Rhythm: regular Heart sounds: normal: S1, S2 - Gastrointestinal Rash is present on the left flank consistent with herpes zoster with mild cellulitis General gastrointestinal: decreased bowel sounds - Neurologic Neurologic: CNII-XII intact - Musculoskeletal Musculoskeletal: gait normal, generalized weakness, strength equal bilaterally - Psychiatric Psychiatric: A&O x's 3, appropriate affect, intact judgment & insight - Labs CBC & Chem 7: 12/15/19 06:47 12/15/19 06:47 Labs: Abnormal Lab Results - Last 24 Hours (Table) 12/14/19 12/15/19 12/15/19 Range/Units 23:50 06:47 06:47 APTT 37.5 H 61.4 H (22.0-30.0) sec Sodium 136 L (137-145) mmol/L Carbon Dioxide 20 L (22-30) mmol/L Glucose 102 H (74-99) mg/dL Albumin 3.4 L (3.5-5.0) g/dL Assessment and Plan Assessment: Paroxysmal atrial fibrillation Intravascular depletion and dehydration Acute metabolic acidosis, normalized Severe hyponatremia, normalized Severe hypokalemia now slightly hyperkalemia Mildly elevated troponin likely demand ischemia, would recommend to trend it Mild cellulitis of left flank Left flank herpes zoster History of left lower lobe nodule found to be nonspecific organizing pneumonia likely related to unknown infectious process Plan: Agree with gentle rehydration Replace potassium and calcium Agree to hold on antibiotics Reviewed computed tomography scan of chest without contrast, no active process noted will observe closely Further recommendations pending plan of care as per clinical response of the patient Time with Patient: Greater than 30
[2019-12-15] MEDS ORDERED: APIXABAN 5 MG TAB PO SCH (13:00)
--- NOTE | 2019-12-15 15:32 | P.PN ---
Subjective Progress Note Date: 12/15/19 This is a 69-year-old female patient who presented to the hospital with symptoms of dizziness and palpitations, recurrent over several hours. Patient was found to have paroxysmal atrial fibrillation with rapid ventricular response, symptomatic, diabetes, hyperlipidemia. Today she is remaining in a normal sinus rhythm. Echocardiogram with Doppler study remains pending. Blood pressure 128/80 with a heart rate in the 70s, 95% on room air. White blood cell count 8.4, hemoglobin 13.7, platelet count 162. Sodium 136, potassium 4.3, BUN 17, creatinine 0.6. Objective - Vital Signs Vital signs: Vital Signs Temp 98.5 F 12/15/19 08:00 Pulse 70 12/15/19 11:59 Resp 16 12/15/19 11:22 BP 128/85 12/15/19 11:22 Pulse Ox 95 12/15/19 11:22 Intake & Output 12/14/19 12/15/19 12/15/19 18:59 06:59 18:59 Intake Total 412.173 247.563 360 Balance 412.173 247.563 360 Weight 113.8 kg Intake: Intake, IV Titration 176.173 247.563 Amount Diltiazem 125 mg In 112.167 71.75 Sodium Chloride 0.9% 100 ml @ 5 MG/HR 5 mls/hr IV .Q24H [facility] Rx#:[id number] Heparin Sod,Pork in 0.45% 64.006 175.813 NaCl 25,000 unit In 0.45 % NaCl 1 250ml.bag @ 8.75 UNITS/KG/HR 10.001 mls/ hr IV .Q24H [facility] Rx#: [id number] Oral 236 360 Other: Voiding Method Toilet Toilet # Voids 1 1 0 # Bowel Movements 0 - Labs CBC & Chem 7: 12/15/19 06:47 12/15/19 06:47 Labs: Abnormal Lab Results - Last 24 Hours (Table) 12/14/19 12/15/19 12/15/19 Range/Units 23:50 06:47 06:47 APTT 37.5 H 61.4 H (22.0-30.0) sec Sodium 136 L (137-145) mmol/L Carbon Dioxide 20 L (22-30) mmol/L Glucose 102 H (74-99) mg/dL Albumin 3.4 L (3.5-5.0) g/dL Assessment and Plan Plan: Assessment and plan #1 paroxysmal atrial fibrillation with rapid ventricular response, symptomatic, currently in normal sinus rhythm #2 diabetes #3 hyperlipidemia Plan We will review the echocardiogram with Doppler study, from our perspective the patient may be able to be discharged home, follow-up appointment in the office post discharge. DNP note has been reviewed, I agree with a documented findings and plan of care. Patient was seen and examined.
--- NOTE | 2019-12-16 04:13 | DS ---
DISCHARGE SUMMARY FINAL DIAGNOSES: 1. Atrial fibrillation with fast ventricular rate. 2. Troponin 0.405 indeterminate. 3. Multiple dyselectrolytemia, possibly secondary to diminished p.o. intake. 4. Metabolic acidosis. 5. Elevated INR, improved. 6. Anemia, normocytic. 7. History of recent shingles, herpes zoster D5, 6 on the left side. 8. History of asthma. 9. History of hypertension. 10.History of pneumonia. 11.History of pulmonary nodule with possible organizing pneumonia with biopsy of the left lower lung recently. 12.History of degenerative joint disease. 13.History of hysterectomy. 14.History of claustrophobia. 15.Obesity with body mass index 40.5. 16.FULL CODE. DISCHARGE DISPOSITION: The patient will be discharged in stable condition with guarded prognosis. Total time taken 35 minutes. Discharge cleared by Cardiology as well as Pulmonology. Recommend close outpatient followup. Patient is keen on going home. HISTORY OF PRESENT ILLNESS: This 69-year-old woman with a past medical history of multiple medical problems as mentioned earlier, being followed by Dr. Dsouza in the outpatient setting admitted with atrial fibrillation with fast ventricular rate, multiple other medical problems. 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 Recommended outpatient followup with Dr. Mcclain at this time. Otherwise, the patient was treated symptomatically. Sodium was 136 and troponins are noted. Cardiology recommended the patient to be discharged and follow up in the outpatient setting. Cardiology cleared the patient for discharge. Please note see Cardiology notes for further information. On exam, vitals are stable. CARDIOVASCULAR: S1, S2 muffled. ABDOMEN: Soft. NERVOUS SYSTEM: No focal deficits. DISCHARGE ADVICE AND MEDICATIONS: 1. Diet is cardiac diet. 2. Activity limited until followup. 3. Follow up with Dr. Dsouza in 1 to 2 days. 4. Follow up with Dr. Mcclain in 1 week. 5. Follow up with Cardiology as recommended. MEDICATIONS: 1. Eliquis 5 mg p.o. b.i.d. 2. Lopressor 50 mg p.o. b.i.d. 3. Tums 1000 mg p.o. daily. Once again the patient will be discharged in a stable condition with guarded prognosis. MMODL / IJN: [id number] /
--- NOTE | 2019-12-17 13:46 | CDI ---
Documentation Clarification Form Date: 12/17/19 From: Gertrudis Grullon Phone: If you have a question about this query, please contact Meron Echavarria, [employer] at [phone] between 8am and 5pm. Admit Date: 12/13/19 Discharge Date:12/15/19 Patient Name: Karmen Cruz Visit Number: [id number] ATTENTION: The Clinical Documentation Specialists (CDI) and [facility] Coding Staff appreciate your assistance in clarifying documentation. Please respond to the clarification below the line at the bottom and electronically sign. The CDI & [facility] Coding staff will review the response and follow-up if needed. Please note: Queries are made part of the Legal Health Record. If you have any questions, please contact the author of this message via ITS. Dear Dr. Jang Patient presented with troponin of: 0.405. Dr. Link documented that the mildly elevated troponin is likely demand ischemia. Documentation in the discharge summary stated troponin 0.405 indeterminate. Patient history/risk factors: A-fib, dehydration, hypokalemia, hypomagnesemia, hypocalcemia. Clinical indicators: Elevated troponin, shortness of breath, dizzy, nausea Troponins: 0.405, 0.686, 0.533 EKG Results: 1. Sinus tachycardia with premature atrial complexes. Cannot rule out anterior infarct, age undetermined. 2. narrow complex tachycardia. 3. sinus tachycardia. 4. A-fib with rate of 122. Treatment: Trended troponins, Serial EKGs Consult: Cardiology - paroxysmal atrial fibrillation with RVR symptomatic, no clear-cut ST segment abnormalities on ECG. In your professional opinion, can you please specify the diagnosis, if any, indicated by the above clinical indicators and treatment? Elevated troponins only [place], type II Other, please specify Unable to determine [place], type II MTDD
== END 2019-12-15 17:28 | disposition home or self-care (01) | DRG 281 ==
LOC: EC 14:59 → 3SCARD 16:55
PROVIDERS: ADMIT Hospitalist; ATTEND Hospitalist
DX: I48.0 Paroxysmal atrial fibrillation (principal); I21.A1 Myocardial infarction type 2; E87.1 Hypo-osmolality and hyponatremia; E87.2 Acidosis; D68.9 Coagulation defect, unspecified; L03.311 Cellulitis of abdominal wall; Z68.41 Body mass index [BMI] 40.0-44.9, adult; E83.51 Hypocalcemia; B02.9 Zoster without complications; E87.5 Hyperkalemia; Z11.59 Encounter for screening for other viral diseases; E87.6 Hypokalemia; E86.0 Dehydration; E83.42 Hypomagnesemia; D3A.00 Benign carcinoid tumor of unspecified site; D64.9 Anemia, unspecified; E11.9 Type 2 diabetes mellitus without complications; E66.9 Obesity, unspecified; E78.5 Hyperlipidemia, unspecified; F40.240 Claustrophobia; I10 Essential (primary) hypertension; J44.9 Chronic obstructive pulmonary disease, unspecified; M19.90 Unspecified osteoarthritis, unspecified site; Z79.82 Long term (current) use of aspirin; Z79.899 Other long term (current) drug therapy; Z87.01 Personal history of pneumonia (recurrent); Z90.710 Acquired absence of both cervix and uterus; Z96.653 Presence of artificial knee joint, bilateral; Z80.3 Family history of malignant neoplasm of breast
CPT/HCPCS: 36415; 70450; 71045; 71250; 80053; 80061; 81001; 83735; 84100; 84439; 84443; 84481; 84484; 85025; 85610; 85652; 85730; 86038; 86140; 86431; 87635; 93005; 96365; 96366; 96368; 99291